=== PATIENT | female | born 1990 | race African-American/Black ===

== ENCOUNTER 2018-10-12 13:46 | Emergency (ER) | payer OTHER ==
--- NOTE | 2018-10-12 13:53 | PDOC ---
Rapid Medical Evaluation Time Seen by Provider: 10/12/18 13:50 Medical Evaluation: Allergies Allergy/AdvReac Type Severity Reaction Status Date / Time No Known Allergies Allergy Verified 12/24/15 09:46 10/12/18 13:50 I have performed a brief in-person evaluation of this patient. The patient presents with a chief complaint of: Chest pain x1 week Pertinent physical exam findings: AF. VSS. Lungs CTAB. Chest non-tender. RRR. No m/r/g. I have ordered the following: cardiac w/u. The patient will proceed to the ED for further evaluation. Discharge Disposition - Diagnosis Chest pain - Referrals - Patient Instructions - Post Discharge Activity
[2018-10-12 13:55] VITALS: BP 135/90; PULSE 77; TEMP 98.6; BMI 29.0
--- NOTE | 2018-10-12 14:58 | PDOC ---
History of Present Illness - General Chief Complaint: Chest Pain Stated Complaint: CHEST PAIN Time Seen by Provider: 10/12/18 13:50 History Source: Patient Exam Limitations: Clinical Condition - History of Present Illness Initial Comments: 10/12/18 15:12 Patient with no past medical history present with complaint of one-week history of midsternal chest pain with intermittent cough. Patient described cough as dry cough. Denies shortness of breath, dizziness, numbness or tingling sensation. Patient denies chest pains now. Denies fever, chills or any other symptoms. Timing/Duration: 1 week Past History - Past Medical History Allergies/Adverse Reactions: Allergies Allergy/AdvReac Type Severity Reaction Status Date / Time No Known Allergies Allergy Verified 12/24/15 09:46 Home Medications: Ambulatory Orders NK [No Known Home Medication] 11/04/15 - Suicide/Smoking/Psychosocial Hx Smoking History: Current some day smoker Have you smoked in the past 12 months: No Number of Cigarettes Smoked Daily: 5 Information on smoking cessation initiated: No 'Breaking Loose' booklet given: 11/04/15 Hx Alcohol Use: No Drug/Substance Use Hx: Yes (weed) Hx Substance Use Treatment: No Review of Systems - Review of Systems Able to Perform ROS?: Yes Is the patient limited Estonian proficient: No Constitutional: No: Symptoms Reported, See HPI, Chills, Diaphoresis, Fever, Loss of Appetite, Malaise, Night Sweats, Weakness, Weight Stable, Unintentional Wgt. Loss, Unexplained wgt Loss, Other HEENTM: No: Symptoms Reported, See HPI, Eye Pain, Blurred Vision, Tearing, Recent change in vision, Double Vision, Cataracts, Ear Pain, Ocular Prothesis, Ear Discharge, Nose Pain, Nose Congestion, Tinnitus, Nose Bleeding, Hearing Loss , Throat Pain, Throat Swelling, Mouth Pain, Dental Problems, Difficulty Swallowing, Mouth Swelling, Other Respiratory: No: Symptoms reported, See HPI, Cough, Orthopnea, Shortness of Breath, SOB with Exertion, SOB at Rest, Stridor, Wheezing, Productive cough, Hemoptysis, Other Cardiac (ROS): Yes: Symptoms Reported, See HPI, Chest Pain (mid-sternum). No: Edema, Irregular Heart Rate, Lightheadedness, Palpitations, Syncope, Chest Tightness, Other ABD/GI: No: Constipated, Diarrhea, Nausea, Vomiting, Abdominal cramping Neurological: No: Headache, Numbness, Paresthesia, Tingling, Dizziness All Other Systems: Reviewed and Negative *Physical Exam - Vital Signs Last Vital Signs Temp Pulse Resp BP Pulse Ox 98.6 F 77 20 135/90 100 10/12/18 13:50 10/12/18 13:50 10/12/18 13:50 10/12/18 13:50 10/12/18 13:50 - Physical Exam Comments: 10/12/18 16:27 GENERAL: Well developed, well nourished. Awake and alert. No acute distress. HEENT: Normocephalic, atraumatic. PERRLA, EOMI. No conjunctival pallor. Sclera are non-icteric. Moist mucous membranes. Oropharynx is clear. NECK: Supple. Full ROM. CARDIOVASCULAR: Regular rate and rhythm. No murmurs, rubs, or gallops. Distal pulses are 2+ and symmetric. PULMONARY: No evidence of respiratory distress. Lungs clear to auscultation bilaterally. No wheezing, rales or rhonchi. ABDOMINAL: Soft. Non-tender. Non-distended. No rebound or guarding. No organomegaly. Normoactive bowel sounds. MUSCULOSKELETAL Normal range of motion at all joints. EXTREMITIES: No cyanosis. No clubbing. No edema. No calf tenderness. SKIN: Warm and dry. Normal capillary refill. No rashes. No jaundice. NEUROLOGICAL: Alert, awake, appropriate. Gait is normal without ataxia. PSYCHIATRIC: Cooperative. Good eye contact. Appropriate mood General Appearance: Yes: Nourished, Appropriately Dressed. No: Apparent Distress Moderate Sedation - Procedure Monitoring Vital Signs: Procedure Monitoring Vital Signs Temperature 98.6 F 10/12/18 13:50 Pulse Rate 77 10/12/18 13:50 Respiratory Rate 20 10/12/18 13:50 Blood Pressure 135/90 10/12/18 13:50 O2 Sat by Pulse Oximetry (%) 100 10/12/18 13:50 ED Treatment Course - LABORATORY CBC & Chemistry Diagram: 10/12/18 15:33 10/12/18 15:33 Medical Decision Making - Medical Decision Making 10/12/18 17:12 Patient with no past medical history present with complaint of one-week history of midsternal chest pain with intermittent cough. Patient described cough as dry cough. Denies shortness of breath, dizziness, numbness or tingling sensation. Patient denies chest pains now. Denies fever, chills or any other symptoms. Clinical exam unremarkable wound no chest tenderness and normal cardio along exam. Patient reported no symptoms now. CBC, CMP and cardiac profile labs are unremarkable. EKG shows normal sinus rhythm. Chest x-ray shows no acute pathology. Patient's symptoms likely costochondritis is stable for discharge to take Tylenol as needed for pain which strict follow-up. Follow-up instructions given to patient. *DC/Admit/Observation/Transfer Diagnosis at time of Disposition: Costochondral chest pain Chest pain Qualifiers: Chest pain type: unspecified Qualified Code(s): R07.9 - Chest pain, unspecified - Discharge Dispostion Disposition: HOME Condition at time of disposition: Stable Decision to Admit order: No - Referrals Referrals: Vic Govea MD [Primary Care Provider] - - Patient Instructions Printed Discharge Instructions: DI for Costochondritis Additional Instructions: Your labs was normal. Your chest x-ray was normal. Your symptoms is likely from muscle pain. Take Tylenol as needed for pain. Come back to ER if worsening chest pain, shortness of breathe, dizziness or severe headache - Post Discharge Activity Forms/Work/School Notes: Back to Work
[2018-10-12 15:53] LABS: BASO % 0.8 % (0-2.0); EOS % 1.1 % (0-4.5); HEMATOCRIT 40.2 % (32.4-45.2); HEMOGLOBIN 13.6 GM/dL (10.7-15.3); LYMPH % 36.5 % (8-40); MCH 32.7 pg (25.7-33.7); MCHC 33.9 g/dl (32.0-36.0); MEAN CELL VOLUME 96.7 fl (80-96); MEAN PLT VOLUME 8.3 fl (7.5-11.1); NEUT % 53.6 % (42.8-82.8); PLATELET COUNT 219 K/MM3 (134-434); RBC 4.16 M/mm3 (3.60-5.2); RDW 13.3 % (11.6-15.6); WHITE BLOOD COUNT 6.1 K/mm3 (4.0-10.0)
[2018-10-12 16:07] LABS: INR 1.02 (0.83-1.09)
[2018-10-12 16:10] LABS: ALBUMIN 3.7 g/dl (3.4-5.0); ALK PHOS 68 U/L (45-117); ANION GAP 5 MMOL/L (8-16); BILIRUBIN,TOTAL 0.6 mg/dL (0.2-1); BLOOD UREA NITROGEN 11 mg/dL (7-18); CALCIUM 8.6 mg/dL (8.5-10.1); CHLORIDE 106 mmol/L (98-107); CO2 27 mmol/L (21-32); CREATININE 0.7 mg/dL (0.55-1.3); GLUCOSE,RANDOM 75 mg/dL (74-106); MAGNESIUM 2.1 mg/dL (1.8-2.4); POTASSIUM 3.9 mmol/L (3.5-5.1); SGOT/AST 15 U/L (15-37); SGPT/ALT 18 U/L (13-61); SODIUM 138 mmol/L (136-145); TOT PROT 7.2 g/dl (6.4-8.2)
[2018-10-12 16:24] LABS: HCG,QUALITATIVE URINE Negative
[2018-10-12 16:26] LABS: URINE APPEARANCE CLEAR; URINE BILIRUBIN NEGATIVE (<2.0 mg/dL); URINE COLOR YELLOW; URINE GLUCOSE (UA) NEGATIVE (NEGATIVE); URINE KETONE 1+ (NEGATIVE); URINE LEUK ESTERASE NEGATIVE (NEGATIVE); URINE NITRITE NEGATIVE (NEGATIVE); URINE PROTEIN NEGATIVE (NEGATIVE); URINE UROBILINOGEN NEGATIVE mg/dL (0.2-1.0)
--- NOTE | 2018-10-13 10:53 | EKG ---
Test Reason : Blood Pressure : / mmHG Vent. Rate : 067 BPM Atrial Rate : 067 BPM P-R Int : 164 ms QRS Dur : 082 ms QT Int : 394 ms P-R-T Axes : 037 058 054 degrees QTc Int : 416 ms NORMAL SINUS RHYTHM WITH SINUS ARRHYTHMIA NORMAL ECG WHEN COMPARED WITH ECG OF 16-MAR-2015 01:38, T WAVE INVERSION NO LONGER EVIDENT IN INFERIOR LEADS T WAVE INVERSION LESS EVIDENT IN ANTERIOR LEADS Confirmed by RONNA BRAND, KATHY ([id number]) on 10/13/2018 10:52:36 AM Referred By: Confirmed By:KATHY FRIEND MD
== END 2018-10-12 17:45 | disposition home or self-care (01) ==
LOC: JER 13:46
DX: M94.0 Chondrocostal junction syndrome [Tietze] (principal)
CPT/HCPCS: 36415; 71046-TC-FY; 80053; 81003; 82550; 82553; 83735; 84484; 84703; 85025; 85610; 93005; 93010; 99283-25

== ENCOUNTER 2019-02-22 17:34 | Emergency (ER) | payer OTHER ==
--- NOTE | 2019-02-22 17:40 | PDOC ---
Rapid Medical Evaluation Time Seen by Provider: 02/22/19 17:37 Medical Evaluation: Allergies Allergy/AdvReac Type Severity Reaction Status Date / Time No Known Allergies Allergy Verified 12/24/15 09:46 02/22/19 17:38 This patient had a brief in-person evaluation in triage CC: , 18 weeks with headaches and discomfort. Also reports possible one episode of vaginal bleeding and dizziness h/o HTN not taking medication PE:appears weak unlabored breathing small amount of swelling of both feet orders: u/a This patient will proceed to the ED for further evaluation Discharge Disposition - Diagnosis Headache - Referrals - Patient Instructions - Post Discharge Activity
[2019-02-22 17:41] VITALS: BP 121/64; PULSE 79; TEMP 98.4; BMI 32.3
[2019-02-22] MEDS ORDERED: ACETAMINOPHEN 325 MG TABLET (FP) PO ONE (17:41)
[2019-02-22 20:14] LABS: BASO % 0.5 % (0-2.0); EOS % 1.5 % (0-4.5); HEMATOCRIT 34.6 % (32.4-45.2); HEMOGLOBIN 11.8 GM/dL (10.7-15.3); LYMPH % 31.9 % (8-40); MCH 31.7 pg (25.7-33.7); MCHC 34.1 g/dl (32.0-36.0); MEAN PLT VOLUME 8.1 fl (7.5-11.1); MONO % 6.2 % (3.8-10.2); NEUT % 59.9 % (42.8-82.8); PLATELET COUNT 245 K/MM3 (134-434); RBC 3.72 M/mm3 (3.60-5.2); RDW 13.5 % (11.6-15.6)
--- NOTE | 2019-02-22 20:38 | PDOC ---
Documentation entered by Nisa Spencer SCRIBE, acting as scribe for Michelle Warner DO. Michelle Warner, DO: This documentation has been prepared by the Tj hanson Adrianna, SCRIBE, under my direction and personally reviewed by me in its entirety. I confirm that the documentation accurately reflects all work, treatment, procedures, and medical decision making performed by me. Attending Attestation - Resident Resident Name: MoralesLyndon - ED Attending Attestation I have performed the following: I have examined & evaluated the patient, The case was reviewed & discussed with the resident, I agree w/resident's findings & plan, Exceptions are as noted - HPI HPI: The patient is a 29 year old female (A1 currently at 18 weeks gestation), with no significant PMH, who presents to the ED for evaluation of headaches and foot pain for several weeks. Patient notes she began experiencing diffuse headaches that occur approximately 3 times a week. She endorses decreased PO intake and nausea (related to ), which she believes may be causal of the headaches. Patient notes pain in both her feet, which is exacerbated with standing and ambulation. She denies trauma, swelling, or paresthesia of the LEs. She reports one episode of bleeding 3 days ago, but is unsure where specifically it came from. Patient notes she passed a normal bowel movement at that time, and noticed blood in the toilet (but not on tissue when she wiped). Denies any episodes of bleeding or discharge since. She endorses some lower abdominal cramping and constipation at this time. LMP was 10/15/18. Allergies: NKA, NKDA Surgical History: Social History: Denies EtOH, tobacco, or illicit drug use OBGYN: Dr. Bullock - Physicial Exam PE: Constitutional: Awake, alert, oriented. No acute distress. Head: Normocephalic. Atraumatic Eyes: PERRL. EOMI. Conjunctivae are not pale. ENT: Mucous membranes are moist and intact. Posterior pharynx without exudates or erythema. Uvula midline. Neck: Supple. Full ROM. No lymphadenopathy. Cardiovascular: Regular rate. Regular rhythm. S1, S2 regular. Distal pulses are 2+ and symmetric. Pulmonary/Chest: No evidence of respiratory distress. Clear to auscultation bilaterally No wheezing, rales or rhonchi. Abdominal: +Gravid below the umbilicus. Soft and nondistended. There is no tenderness. No rebound, guarding or rigidity. No organomegaly. No palpable masses. Good bowel sounds. Back: No CVA tenderness. Musculoskeletal: No edema. No cyanosis. No clubbing. Full range of motion in all extremities. No calf tenderness. Radial/pedal pulses are intact and 2+ bilaterally Skin: Skin is warm and dry. No petechiae. No purpura. Neurological: Alert and oriented to person, place, and time. No focal deficits. Psychiatric: Good eye contact. Normal interaction, affect and behavior. - Medical Decision Making 02/22/19 20:35 I, Dr. Michelle Warner, DO, attest that this document has been prepared under my direction and personally reviewed by me in its entirety. I further attest, that it accurately reflects all work, treatment, procedures and medical decision -making performed by me. 02/22/19 20:35 a/p: 29yo female at around 18weeks gestation with lower abd pain and headache -no dysuria -denies vaginal discharge or bleeding -saw blood in the toilet after bowel movement about a week ago, none since and none on the tissue -no cp/sob -has appt with Dr. Bullock on mar 07 -no fevers -states decreased po intake recently -states heat has caused her neumann -states she has also felt stressed recently -will send labs -pocus tab preg shows iup at 18w3d with fhr 156, no ff -will monitor and reassess 02/22/19 21:12 ua neg cbc stable beta >[id number] pending type and screen 02/22/19 21:45 a+ stable for dc to home and follow up with head of physics as scheduled
--- NOTE | 2019-02-22 20:43 | PDOC ---
History of Present Illness - General Chief Complaint: Headache Stated Complaint: DISCOMFORT/18 WEEKS Time Seen by Provider: 02/22/19 17:37 History Source: Patient, Significant Other (Boyfriend and father of child at bedside. ) Exam Limitations: No Limitations - History of Present Illness Initial Comments: HPI: 29 y/o female presenting to [facility] ER complaining of acute on chronic episodic headaches and pain in feet in setting of known . Estimated to be 18 weeks by LMP. Follows with Dr. Bullock, but has not been evaluated in the past six weeks because of insurance issues. Insurance has restarted and pt has a f/u clinic appointment scheduled for Mar. Pt reports headaches occur possibly three times a week for the past several weeks. Suspects it is secondary to poor PO intake as her appetite has been variable. Endorses nausea without vomiting. Denies numbness/tingling in extremities, vision changes, or syncope. States her feet hurt while standing and walking. Denies trauma to the area. Denies observing swelling. Endorses episode of bleeding several days ago but is unsure if blood came from vagina or anus. No further bleeding. Pt states she feels safe at home and in her relationship. Denies concern about personal safety or wellbeing. OBGYN: - A1 - x2 - One premature child - No complications with prior pregnancies Medical Hx: - Pt denies past medical history. Denies taking prescription medications. Surgical Hx: - x2 Review of Systems: In addition to that documented in the HPI above, the additional ROS was obtained : Constitutional: Denies fevers or chills Head: Denies vision changes ENMT: Denies sore throat CV: Denies chest pain Resp: Denies SOB GI: Denies vomiting or diarrhea : Denies painful urination or hematuria MSK: Denies recent trauma Skin: Denies new rashes Neuro: Denies new numbness or tingling or weakness Endocrine: Denies polyuria Heme: Denies bleeding or bruising Physical Examination: Constitutional: Well-developed, well-nourished female in no acute distress or obvious discomfort. Found sitting upright on edge of hospital SHOT [employer]LE [employer] table. Alert and oriented x4. Answered all questions appropriately and completely. Speech was non-labored, non-pressured. Head: Normocephalic. No obvious external signs of trauma. Cardiovascular / Chest: Regular rate and regular rhythm. No murmur, rubs, clicks , or gallops. Peripheral pulses: radial pulses full. Trace pretibial edema bilaterally. Respiratory: Breathing unlabored. Equal chest rise and fall. Clear to auscultation bilaterally. No stridor, no wheezing, no rhonchi. Gastrointestinal: abdomen is soft, non-tender, non-distended. Gravid abdomen. Neuro: Alert and oriented. Moving all four extremities spontaneously. Skin: Warm, dry, and intact. No bruising, rashes, or other lesions. No palpable nodules. Psych: Affect: flat. Mood: withdrawn. MDM: *Reviewed vital signs, nursing notes, and prior visit documentation (if available). 29 y/o female presenting for episodic headache and feet pain in setting of . No recent vaginal bleeding. Endorses decreased PO intake. Afebrile. Vitals unremarkable for hypotension or tachycardia. Physical exam as described above. Suspect secondary to mild dehydration versus tension headache. Low suspicion for pre-eclampsia. UA unremarkable for protein. CMP unremarkable for LFT elevation. CBC unremarkable for anemia. POCUS performed which revealed well appearing fetus with HR of 156. Given PO Tylenol and glass of water. Pt reassessed and reports feeling better. Discussed imaging and laboratory results with pt. Answered all questions. Provided return precautions. Pt expressed verbal understanding and agreement with plan to discharge home with outpatient follow up. Provided copies of todays results. Lyndon Morales M.D., PGY2 Emergency Medicine Resident Past History - Past Medical History Allergies/Adverse Reactions: Allergies Allergy/AdvReac Type Severity Reaction Status Date / Time No Known Allergies Allergy Verified 02/22/19 17:41 Home Medications: Ambulatory Orders NK [No Known Home Medication] 11/04/15 COPD: No HTN: Yes (not on meds) - Suicide/Smoking/Psychosocial Hx Smoking History: Never smoked Have you smoked in the past 12 months: No Number of Cigarettes Smoked Daily: 5 Information on smoking cessation initiated: No 'Breaking Loose' booklet given: 11/04/15 Hx Alcohol Use: No Drug/Substance Use Hx: No Hx Substance Use Treatment: No *Physical Exam - Vital Signs Last Vital Signs Temp Pulse Resp BP Pulse Ox 98.4 F 79 19 121/64 99 02/22/19 17:38 02/22/19 17:38 02/22/19 17:38 02/22/19 17:38 02/22/19 17:38 ED Treatment Course - LABORATORY CBC & Chemistry Diagram: 02/22/19 19:57 02/22/19 19:57 - ADDITIONAL ORDERS Additional order review: 02/22/19 19:57 RBC 3.72 MCV 93.0 MCHC 34.1 RDW 13.5 MPV 8.1 Neutrophils % 59.9 Lymphocytes % 31.9 Monocytes % 6.2 Eosinophils % 1.5 Basophils % 0.5 *DC/Admit/Observation/Transfer Diagnosis at time of Disposition: Headache Qualifiers: Headache type: unspecified Headache chronicity pattern: episodic headache Intractability: not intractable Qualified Code(s): R51 - Headache Qualifiers: Weeks of gestation: 18 weeks Qualified Code(s): Z3A.18 - 18 weeks gestation of - Discharge Dispostion Disposition: HOME Condition at time of disposition: Improved Decision to Admit order: No - Referrals Referrals: Shanice Bullock DO [Staff Physician] - - Patient Instructions Printed Discharge Instructions: DI for -- Discomforts and Remedies Additional Instructions: You were seen today for headaches and foot pain while . Your labs were normal today. Your ultrasound was reassuring. Your symptoms are likely because of mild dehydration. Be sure to increase the amount of water you are drinking. The goal should be to pee about once an hour. You can take over the counter Tylenol as needed for pain. Take as directed on the package insert. Do not exceed the recommended dosage. Follow up with Dr. Bullock at your previously scheduled appointment. A copy of todays results are attached to this packet. Take it to the appointment so your doctor can review them. Go to the nearest emergency department if your condition worsens or you feel like you need additional emergency evaluation. Print Language: AZERI - Post Discharge Activity Forms/Work/School Notes: Back to Work
[2019-02-22 20:51] LABS: ALBUMIN 3.1 g/dl (3.4-5.0); BILIRUBIN,TOTAL 0.2 mg/dL (0.2-1); BLOOD UREA NITROGEN 6.2 mg/dL (7-18); CREATININE 0.6 mg/dL (0.55-1.3); POTASSIUM 3.9 mmol/L (3.5-5.1); TOT PROT 6.9 g/dl (6.4-8.2)
[2019-02-22 20:54] LABS: EPI CELLS 3.3 /HPF (0-5/HPF); HYALINE CASTS 0 /lpf (0-8); PH,URINE 7.5 (5.0-8.0); URINE APPEARANCE CLEAR; URINE BACTERIA 117.3 /hpf (NEGATIVE); URINE BILIRUBIN NEGATIVE (NEGATIVE); URINE COLOR YELLOW; URINE GLUCOSE (UA) NEGATIVE (NEGATIVE); URINE KETONE NEGATIVE (NEGATIVE); URINE LEUK ESTERASE TRACE (NEGATIVE); URINE NITRITE NEGATIVE (NEGATIVE); URINE PROTEIN NEGATIVE (NEGATIVE); URINE RBC 1 /hpf (0-4); URINE UROBILINOGEN 0.2 mg/dL (0.2-1.0); URINE WBC 1 /hpf (0-5)
== END 2019-02-22 22:04 | disposition home or self-care (01) ==
LOC: JER 17:34
DX: O26.892 Other specified pregnancy related conditions, second trimester (principal); Z3A.18 18 weeks gestation of pregnancy; R51 Headache; F17.210 Nicotine dependence, cigarettes, uncomplicated; I10 Essential (primary) hypertension
CPT/HCPCS: 36415; 76815; 80053; 81003; 84702; 85025; 86850; 86900; 86901; 87086; 99282-25

== ENCOUNTER → 2019-03-26 | Emergency (ER) | payer OTHER ==
[2019-03-26 19:01] VITALS: BP 128/68; PULSE 97; TEMP 98.3; BMI 33.6
--- NOTE | 2019-03-26 19:25 | PDOC ---
History of Present Illness - General Chief Complaint: Labor Assessment Stated Complaint: NOT FEELING MOVEMENT Time Seen by Provider: 03/26/19 19:12 History Source: Patient Exam Limitations: No Limitations - History of Present Illness Initial Comments: 03/26/19 19:28 Patient is here with concerns about movement. His 23 weeks with a relatively uncomplicated . Denies fever, denies melena cramping, denies any vaginal drainage or bleeding. Dr. Bullock is her [employer]. Has appointment TOMORROW but became nervous and was hoping for a quick evaluation Timing/Duration: unsure, 24 hours Severity: mild Associated Symptoms: reports: denies symptoms. denies: fever/chills Past History - Travel Traveled outside of the country in the last 30 days: No Close contact w/someone who was outside of country & ill: No - Past Medical History Allergies/Adverse Reactions: Allergies Allergy/AdvReac Type Severity Reaction Status Date / Time No Known Allergies Allergy Verified 03/26/19 19:01 Home Medications: Ambulatory Orders NK [No Known Home Medication] 11/04/15 COPD: No HTN: Yes (not on meds) - Suicide/Smoking/Psychosocial Hx Smoking History: Never smoked Have you smoked in the past 12 months: No Number of Cigarettes Smoked Daily: 5 'Breaking Loose' booklet given: 11/04/15 Hx Alcohol Use: No Drug/Substance Use Hx: No Hx Substance Use Treatment: No Review of Systems - Review of Systems Able to Perform ROS?: Yes Is the patient limited Croatian proficient: Yes Constitutional: Yes: Symptoms Reported, See HPI. No: Chills, Fever, Malaise HEENTM: Yes: See HPI. No: Symptoms Reported ABD/GI: Yes: See HPI. No: Symptoms Reported, Abdominal Distended, Nausea, Vomiting, Abdominal cramping : Yes: See HPI. No: Symptoms Reported, Dysuria, Discharge, Pain Musculoskeletal: No: Symptoms Reported Integumentary: Yes: See HPI. No: Symptoms Reported All Other Systems: Reviewed and Negative *Physical Exam - Vital Signs Last Vital Signs Temp Pulse Resp BP Pulse Ox 98.3 F 97 H 18 128/68 97 03/26/19 18:58 03/26/19 18:58 03/26/19 18:58 03/26/19 18:58 03/26/19 18:58 - Physical Exam General Appearance: Yes: Nourished, Appropriately Dressed. No: Apparent Distress HEENT: positive: ANDRES, Normal ENT Inspection, TMs Normal, Pharynx Normal Neck: positive: Supple. negative: Tender Respiratory/Chest: positive: Lungs Clear Female Pelvic Exam: positive: other Gastrointestinal/Abdominal: positive: Soft, Other (distended abdomen without rebound or guarding). negative: Normal Bowel Sounds Musculoskeletal: negative: Normal Inspection Extremity: positive: Normal Capillary Refill, Normal Inspection, Normal Range of Motion Integumentary: positive: Normal Color, Dry, Warm, Pale Neurologic: positive: transferrer II-XII NML intact, Fully Oriented, Alert, Normal Mood/ Affect, Normal Response, Motor Strength 12/04 Medical Decision Making - Medical Decision Making 03/26/19 19:31 Doppler of abdomen revealed heart rate at 160 consistently with maternal heart rate at 85-86 *DC/Admit/Observation/Transfer Diagnosis at time of Disposition: Normal in second trimester - Discharge Dispostion Disposition: HOME Condition at time of disposition: Stable Decision to Admit order: No - Referrals Referrals: Vic Govea MD [Primary Care Provider] - - Patient Instructions Printed Discharge Instructions: DI for -- Discomforts and Remedies Additional Instructions: Keep appointment tomorrow as scheduled Rest, avoid any heavy lifting or strenuous activity - Post Discharge Activity Forms/Work/School Notes: Back to Work
== END | disposition home or self-care (01) ==
LOC: JER 18:56
DX: O26.892 Other specified pregnancy related conditions, second trimester (principal); Z34.92 Encounter for supervision of normal pregnancy, unspecified, second trimester; Z3A.23 23 weeks gestation of pregnancy
CPT/HCPCS: 99281-25

== ENCOUNTER 2021-01-03 11:04 | Emergency (ER) | payer OTHER ==
[2021-01-03 11:13] VITALS: BMI 37.1
[2021-01-03] MEDS ORDERED: ACETAMINOPHEN 325 MG TABLET (FP) PO ONE (12:08)
[2021-01-03] MEDS ORDERED: ACETAMINOPHEN 325 MG TABLET (FP) ONE (12:13)
[2021-01-03 13:22] LABS: EPI CELLS >36 /uL (0-25.1); HYALINE CASTS 2 /uL (0-3.1); URINE APPEARANCE CLEAR; URINE BACTERIA 1629 /uL (0-1359); URINE BILIRUBIN NEGATIVE (NEGATIVE); URINE COLOR YELLOW; URINE GLUCOSE (UA) NEGATIVE (NEGATIVE); URINE KETONE TRACE (NEGATIVE); URINE LEUK ESTERASE TRACE (NEGATIVE); URINE NITRITE NEGATIVE (NEGATIVE); URINE PROTEIN TRACE (NEGATIVE); URINE RBC 7 /uL (0-23.9); URINE WBC 20 /uL (0-25.8)
[2021-01-03 13:58] LABS: URINE CRYSTALS NON SEEN /hpf
[2021-01-03 15:13] VITALS: BP 129/73; PULSE 104; TEMP 98.1
== END 2021-01-03 15:40 | disposition home or self-care (01) ==
LOC: JER 11:04
DX: M54.6 Pain in thoracic spine (principal)
CPT/HCPCS: 76815; 81003; 87086; 93005; 93010; 93308; 99284-25

== ENCOUNTER 2022-08-10 20:10 | Emergency (ER) | payer OTHER ==
[2022-08-10 20:19] VITALS: BP 139/79; PULSE 92; RESP 18; TEMP 98.3; BMI 36.3
== END 2022-08-10 22:29 | disposition home or self-care (01) ==
LOC: JER 20:10 → JERFT 20:10 → JER 22:29
DX: J40 Bronchitis, not specified as acute or chronic (principal)
CPT/HCPCS: 0241U-QW; 99283-25

== ENCOUNTER 2022-08-17 18:04 | Emergency (ER) | payer OTHER ==
[2022-08-17 18:23] VITALS: BP 125/75; PULSE 110; RESP 17; TEMP 99.2; BMI 37.9
[2022-08-17] MEDS ORDERED: CODEINE SO4 30 MG TABLET PO ONE (19:02)
[2022-08-17] MEDS ORDERED: guaiFENesin/CODEINE 10 ML UNIT-DOSE CUPS PO ONE (19:03)
[2022-08-17] MEDS ORDERED: guaiFENesin/CODEINE 10 ML UNIT-DOSE CUPS ONE (19:05)
== END 2022-08-17 19:26 | disposition home or self-care (01) ==
LOC: JER 18:04 → JERFT 18:04
DX: J40 Bronchitis, not specified as acute or chronic (principal)
CPT/HCPCS: 99283-25

== ENCOUNTER 2022-10-29 12:30 | Emergency (ER) | payer OTHER ==
[2022-10-29 12:46] VITALS: BP 138/95; PULSE 88; RESP 18; TEMP 98.8; BMI 37.9
[2022-10-29] MEDS ORDERED: ACETAMINOPHEN 500 MG TABLET (FP) PO ONE (13:13)
[2022-10-29] MEDS ORDERED: ACETAMINOPHEN 500 MG TABLET (FP) ONE (13:14)
== END 2022-10-29 15:07 | disposition left against medical advice (07) ==
LOC: JERFT 12:30 → JER 12:30 → JERFT 15:07
DX: S01.511A Laceration without foreign body of lip, initial encounter (principal); W22.8XXA Striking against or struck by other objects, initial encounter; Y04.8XXA Assault by other bodily force, initial encounter
CPT/HCPCS: 99283-25

== ENCOUNTER 2023-05-25 18:55 | Emergency (ER) | payer OTHER ==
[2023-05-25 19:07] VITALS: BP 120/83; PULSE 94; RESP 20; TEMP 98.2; BMI 37.1
[2023-05-25] MEDS ORDERED: ALBUTEROL SO4 2.5/IPRATROPIUM 0.5 INH SOL 3 ML VIAL.NEB. NEB ONE ×2 (21:04→21:09)
== END 2023-05-25 22:42 | disposition home or self-care (01) ==
LOC: JERFT 18:55
PROC: 3E0F7GC Introduction of Other Therapeutic Substance into Respiratory Tract, Via Natural or Artificial Opening (ICD-10-PCS; principal; 2023-05-25)
DX: J20.9 Acute bronchitis, unspecified (principal); Z20.822 Contact with and (suspected) exposure to COVID-19
CPT/HCPCS: 0241U-QW; 94640; 99283-25

== ENCOUNTER 2023-08-31 10:02 | Emergency (ER) | payer OTHER ==
[2023-08-31 10:08] VITALS: BP 133/86; PULSE 108; RESP 18; TEMP 100; BMI 35.2
[2023-08-31] MEDS ORDERED: ACETAMINOPHEN 500 MG TABLET (FP) PO ONE (10:38)
[2023-08-31] MEDS ORDERED: DEXAMETHASONE SOD PHOSPHATE 10 MG/1 ML VIAL IM ONE (10:38)
[2023-08-31] MEDS ORDERED: DEXAMETHASONE SOD PHOSPHATE 10 MG/1 ML VIAL ONE (10:56)
[2023-08-31] MEDS ORDERED: ACETAMINOPHEN 500 MG TABLET (FP) ONE (10:56)
== END 2023-08-31 12:29 | disposition home or self-care (01) ==
LOC: JERFT 10:02
PROC: 3E023GC Introduction of Other Therapeutic Substance into Muscle, Percutaneous Approach (ICD-10-PCS; principal; 2023-08-31)
DX: R07.0 Pain in throat (principal); B97.4 Respiratory syncytial virus as the cause of diseases classified elsewhere; R05.9 Cough, unspecified; R50.9 Fever, unspecified; Z20.822 Contact with and (suspected) exposure to COVID-19
CPT/HCPCS: 0241U-QW; 99284-25; J1100

== ENCOUNTER 2024-09-20 15:28 | Emergency (ER) | payer OTHER ==
[2024-09-20 16:02] VITALS: BP 131/72; PULSE 80; RESP 16; TEMP 98.4; BMI 30.4
[2024-09-20 17:22] LABS: URINE APPEARANCE CLEAR; URINE BILIRUBIN NEGATIVE (NEGATIVE); URINE COLOR YELLOW; URINE GLUCOSE (UA) NEGATIVE (NEGATIVE); URINE KETONE NEGATIVE (NEGATIVE); URINE LEUK ESTERASE NEGATIVE (NEGATIVE); URINE NITRITE NEGATIVE (NEGATIVE); URINE PROTEIN NEGATIVE (NEGATIVE)
== END 2024-09-20 18:38 | disposition home or self-care (01) ==
LOC: JER 15:28
DX: R07.89 Other chest pain (principal); R42 Dizziness and giddiness; R06.02 Shortness of breath
CPT/HCPCS: 71046-TC-FY; 81003; 84703; 87086; 93005; 93010; 99285-25